=== PATIENT | female | born 1950 | race Hispanic/Latino ===

== ENCOUNTER 2019-01-09 14:23 | Emergency (ER) | payer MEDICARE, OTHER ==
[~2019-01-09] VITALS: Ht 165.1 cm; Wt 86.2 kg
--- OUTSIDE RECORDS SUMMARY | 2019-01-09 14:25 | XMS REPORT ---
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 Allergies, Adverse Reactions, Alerts This patient has no known allergies or adverse reactions. Medications This patient has no known medications. Results Test Description Test Time Test Comments Text Results Atomic Results Result Comments CT BRAIN WO [place] [address] Patient Name: TASHIA PENA MR #: [id number] : 1950 Age/Sex: 66/F Req #: [id number] Adm Physician: Ordered by: CORNELIUS HUNTLEY MD Report #: [id number] Location: ER Room/Bed: Procedure: [id number] CT/CT BRAIN WO Exam Date: Exam Time: REPORT STATUS: Signed EXAMINATION: Head CT without contrast. HISTORY:Headache and dizziness. COMPARISON:None. TECHNIQUE: Multidetector axial images were obtained from the foramen magnum to the vertex without contrast. The images were reconstructed using brain and bone algorithms. Thin section brain images were reformatted into coronal and sagittal planes. Intravenous contrast: None IMAGE QUALITY: Acceptable. FINDINGS: Skull/scalp: No abnormality. Parenchyma: No abnormal density. No acute hemorrhage, mass or acute major vascular territorial infarct. Arteries: No density suggestive of thrombosis. Dural sinuses: No abnormal density suggestive of thrombosis. Ventricles: No hydrocephalus or displacement. Extra- axial spaces: Incidental 4 mm well-circumscribed hypodense lesion in the anterior interhemispheric fissure possibly represents small lipoma. Brain volume: Normal for age. Craniocervical junction: No mass, Chiari malformation, or basilar invagination. Sella: No mass. P aranasal/mastoid sinuses: Imaged portions unremarkable. IMPRESSION: No acute intracranial abnormality. Signed by: Dr. Lara Sumner M.D. on 02/15/2017 1:44 AM Dictated By: LARA SUMNER MD 3 Transcribed By: NATE on 02/15/17143 COPY TO: CORNELIUS HUNTLEY MD
[2019-01-09] MEDS ORDERED: TRAMADOL HCL 50 MG TAB PO ONE (15:00)
[2019-01-09 16:20] LABS: BILIRUBIN,URINE NEGATIVE (NEGATIVE); CLARITY,URINE CLEAR (CLEAR); COLOR,URINE YELLOW (YELLOW); KETONES,URINE NEGATIVE (NEGATIVE); LEUKOCYTE ESTERASE ,URINE MODERATE (NEGATIVE); NITRITE,URINE NEGATIVE (NEGATIVE); PROTEIN,URINE DIPSTICK NEGATIVE (NEGATIVE); URINE UROBILINOGEN 0.2 mg/dL (0.2 - 1)
--- NOTE | 2019-01-09 16:20 | Diagnostic Imaging Report ---
Chest radiograph, 2 views Clinical indications: Pain Comparison: None Findings: The heart is within normal limits in size. The aorta has a tortuous appearance. The mediastinal and hilar contours are unremarkable. No focal consolidation, sizable pleural effusion, or pneumothorax. Surgical clips project over the left axilla. Impression: No radiographic evidence of an acute cardiopulmonary process. Signed by: Jeramy Orellana MD on 01/09/2019 4:17 PM
[2019-01-09 16:42] LABS: BACTERIA,URINE RARE /HPF; EPITHELIAL CELLS,URINE MODERATE /LPF; RBC,URINE 0-5 /HPF (0-5); RENAL EPITHELIAL CELLS,URINE RARE; TRANSITIONAL EPI CELLS,URINE RARE
--- NOTE | 2019-01-09 18:43 | NUR ---
PT REQUESTED ANGUILLAN. MANUFACTURING SUPERVISOR COMPUTER USED PER POLICY AND PT DISCHARGED. [id number]
== END 2019-01-09 18:43 | disposition home or self-care (01) ==
LOC: ER 14:23
DX: J20.9 Acute bronchitis, unspecified (principal); N39.0 Urinary tract infection, site not specified; I10 Essential (primary) hypertension; E11.9 Type 2 diabetes mellitus without complications; E78.5 Hyperlipidemia, unspecified; Z85.3 Personal history of malignant neoplasm of breast
CPT/HCPCS: 71046; 81001; 87086; 93005; 99283

== ENCOUNTER 2022-02-14 16:00 | Outpatient (RCR) | payer OTHER, MEDICARE | END 2022-02-16 | LOC: PT 16:00 | PROVIDERS: ATTEND Physician Assistant | DX: M75.82 Other shoulder lesions, left shoulder (principal) ==

== ENCOUNTER 2022-02-21 09:00 | Outpatient (RCR) | payer OTHER, MEDICARE ==
[2022-03-20] MEDS ORDERED: PRAMIPEXOLE D0.25 MG PO (14:36)
[2022-03-20] MEDS ORDERED: LEVOCETIRIZINE D5 MG PO (14:36)
[2022-03-20] MEDS ORDERED: NEURONTIN300 MG PO (14:36)
[2022-03-20] MEDS ORDERED: LOSARTAN POTASS25 MG PO (14:36)
[2022-03-20] MEDS ORDERED: CELEXA20 MG PO (14:36)
[2022-03-20] MEDS ORDERED: OMEPRAZOLE20 MG PO (14:36)
[2022-03-20] MEDS ORDERED: METFORMIN HCL500 MG PO (14:36)
[2022-03-20] MEDS ORDERED: ARICEPT5 MG PO (14:36)
[2022-03-20] MEDS ORDERED: CRESTOR10 MG PO (14:36)
[2022-03-20] MEDS ORDERED: TIZANIDINE HCL4 MG PO (14:36)
[2022-03-20] MEDS ORDERED: METOPROLOL TAR100 MG PO (14:36)
== END 2022-03-19 ==
LOC: PT 09:00
PROVIDERS: ATTEND Physician Assistant
DX: M75.82 Other shoulder lesions, left shoulder (principal)

== ENCOUNTER 2022-03-20 06:05 | Inpatient (IN) | payer MEDICARE ==
[~2022-03-20] VITALS: Ht 154.9 cm; Wt 84.4 kg
[2022-03-20 06:33] LABS: BASOPHILS % 0.7 % (0.0-1.0); EOSINOPHILS # (AUTO) 0.2 (0.0-0.4); EOSINOPHILS % 2.9 % (0.0-6.0); HEMATOCRIT 29.4 % (34.2-44.1); HEMOGLOBIN 10.2 g/dL (12.0-16.0); LYMPHOCYTES # (AUTO) 1.7 (1.0-3.2); LYMPHOCYTES % 29.2 % (18.0-39.1); MEAN CORPUSCULAR HEMOGLOBIN 32.8 pg (28-32); MEAN CORPUSCULAR HGB CONC 34.7 g/dL (31-35); MEAN CORPUSCULAR VOLUME 94.5 fL (81-99); MONOCYTES # (AUTO) 0.4 (0.2-0.8); MONOCYTES % 6.7 % (4.4-11.3); NEUTROPHILS # (AUTO) 3.5 (2.1-6.9); NEUTROPHILS % 60.2 % (38.7-80.0); PLATELET COUNT 243 x10e3/uL (140-360); RED BLOOD COUNT 3.11 x10e6/uL (3.6-5.1); RED CELL DISTRIBUTION WIDTH 13.9 % (11.7-14.4)
[2022-03-20 06:53] LABS: ALBUMIN 3.7 g/dL (3.5-5.0); ALBUMIN/GLOBULIN RATIO 1.2 (0.8-2.0); ANION GAP 13.8 mmol/L (8-16); CALCIUM 8.9 mg/dL (8.4-10.2); CREATININE, SERUM 0.77 mg/dL (0.57-1.11)
[2022-03-20 06:59] LABS: POTASSIUM 2.8 mmol/L (3.5-5.1)
[2022-03-20] MEDS ORDERED: POTASSIUM CHLORIDE 20 MEQ TAB CR PO STA (06:59)
[2022-03-20] MEDS ORDERED: ASPIRIN 325 MG TAB PO ONE (07:00)
[2022-03-20] MEDS ORDERED: NITROGLYCERIN 0.4 MG SUBL SL PRN (07:00)
[2022-03-20] MEDS ORDERED: POTASSIUM CHLORIDE 20MEQ/100ML 100 ML IV ONE (07:00)
[2022-03-20] MEDS ORDERED: ENOXAPARIN INJ 80 MG/0.8 ML SYR SC STA (07:03)
[2022-03-20 07:12] LABS: INR 0.82; PROTHROMBIN TIME 12.1 seconds (11.9-14.5)
[2022-03-20] MEDS ORDERED: ONDANSETRON HCL INJ 2MG/ML 2ML 2 MG/ML VIAL IV PRN (07:15)
[2022-03-20] MEDS ORDERED: ASPIRIN 81 MG CHEW TAB PO ONE (07:15)
[2022-03-20] MEDS ORDERED: Morphine 4mg INJECTION 4 MG/ML INJ IV PRN (07:15)
[2022-03-20] MEDS ORDERED: ENOXAPARIN INJ 80 MG/0.8 ML SYR SC ONE (07:31)
[2022-03-20] MEDS ORDERED: SODIUM CHLORIDE 0.9% 1000ML 1,000 ML ONE ×2 (07:33→17:57)
[2022-03-20 09:39] LABS: CHOL/HDL RATIO 1.9 (3.0-3.6)
[2022-03-20 09:59] LABS: THYROID STIMULATING HORMONE 2.22 uIU/mL (0.350-4.940)
[2022-03-20] MEDS ORDERED: ALBUTEROL/IPRATROPIUM 3 ML NEB NEB PRN (10:00)
[2022-03-20] MEDS: METOPROLOL SUCCINATE 25 MG TAB XL PO SCH (10:15)
[2022-03-20] MEDS: OSELTAMIVIR PHOSPHATE 75 MG CAP PO SCH ×2 (10:16→15:46)
[2022-03-20] MEDS ORDERED: IOPAMIDOL 370 MG/ML 100 ML INFUS..BTL INJ ONE ×2 (11:18→17:57)
[2022-03-20] MEDS ORDERED: TIZANIDINE HCL4 MG PO (14:36)
[2022-03-20] MEDS ORDERED: CRESTOR10 MG PO (14:36)
[2022-03-20] MEDS ORDERED: LOSARTAN POTASS25 MG PO (14:36)
[2022-03-20] MEDS ORDERED: CELEXA20 MG PO (14:36)
[2022-03-20] MEDS ORDERED: NEURONTIN300 MG PO (14:36)
[2022-03-20] MEDS ORDERED: PRAMIPEXOLE D0.25 MG PO (14:36)
[2022-03-20] MEDS ORDERED: OMEPRAZOLE20 MG PO (14:36)
[2022-03-20] MEDS ORDERED: METFORMIN HCL500 MG PO (14:36)
[2022-03-20] MEDS ORDERED: METOPROLOL TAR100 MG PO (14:36)
[2022-03-20] MEDS ORDERED: ARICEPT5 MG PO (14:36)
[2022-03-20] MEDS ORDERED: LEVOCETIRIZINE D5 MG PO (14:36)
[2022-03-20 14:45] VITALS: BP 175/80
[2022-03-20 15:27] VITALS: BP 175/80
[2022-03-20 15:36] VITALS: BP 175/80
[2022-03-20] MEDS: LOSARTAN POTASSIUM 100 MG TAB PO SCH (15:46)
[2022-03-20 15:55] LABS: ANION GAP 12.5 mmol/L (8-16); CALCIUM 8.8 mg/dL (8.4-10.2); CREATININE, SERUM 0.68 mg/dL (0.57-1.11); POTASSIUM 3.5 mmol/L (3.5-5.1)
[2022-03-20 16:24] LABS: CREATINE KINASE MB 36.5 ng/mL (0-5.0)
[2022-03-20] MEDS ORDERED: HEPARIN SOD/SOD CHLORIDE 2,000 ML ONE (17:57)
[2022-03-20] MEDS ORDERED: HEPARIN SOD (PORCINE) 1000 UNIT/ML 30ML ONE (17:57)
[2022-03-20] MEDS ORDERED: LIDOCAINE HCL 2% LOCAL INJ 5 ML SDV VIAL INJ ONE (17:58)
[2022-03-20] MEDS ORDERED: LIDOCAINE 1% 10 ML MULTIDOSE VIAL IJ ONE (17:58)
[2022-03-20] MEDS ORDERED: VERAPAMIL HCL 2.5 MG/ML 2 ML VIAL ONE (17:59)
[2022-03-20] MEDS ORDERED: FENTANYL CITRATE/PF 100MCG/2 ML INJ ONE (17:59)
[2022-03-20] MEDS ORDERED: MIDAZOLAM HCL 2 MG/2 ML VIAL ONE (17:59)
[2022-03-20 20:00] VITALS: BP 117/65
[2022-03-20] MEDS: ENOXAPARIN SODIUM INJ 100 MG/ML SYR SC SCH (23:16)
[2022-03-21] VITALS (8 sets, daily range): BP systolic 96–152; BP diastolic 54–82
[2022-03-21 00:34] LABS: CREATINE KINASE MB 20.4 ng/mL (0-5.0)
[2022-03-21 06:12] LABS: BASOPHILS % 0.5 % (0.0-1.0); EOSINOPHILS # (AUTO) 0.2 (0.0-0.4); EOSINOPHILS % 2.7 % (0.0-6.0); HEMATOCRIT 30.6 % (34.2-44.1); HEMOGLOBIN 9.9 g/dL (12.0-16.0); LYMPHOCYTES # (AUTO) 1.4 (1.0-3.2); LYMPHOCYTES % 23.9 % (18.0-39.1); MEAN CORPUSCULAR HEMOGLOBIN 29.8 pg (28-32); MEAN CORPUSCULAR HGB CONC 32.4 g/dL (31-35); MEAN CORPUSCULAR VOLUME 92.2 fL (81-99); MONOCYTES # (AUTO) 0.5 (0.2-0.8); MONOCYTES % 9.6 % (4.4-11.3); NEUTROPHILS # (AUTO) 3.6 (2.1-6.9); NEUTROPHILS % 63.1 % (38.7-80.0); PLATELET COUNT 288 x10e3/uL (140-360); RED BLOOD COUNT 3.32 x10e6/uL (3.6-5.1); RED CELL DISTRIBUTION WIDTH 13.7 % (11.7-14.4)
[2022-03-21 06:37] LABS: ANION GAP 12.5 mmol/L (8-16); CALCIUM 8.9 mg/dL (8.4-10.2); CREATININE, SERUM 0.78 mg/dL (0.57-1.11); POTASSIUM 3.5 mmol/L (3.5-5.1)
[2022-03-21 06:52] LABS: MAGNESIUM 1.8 MG/DL (1.3-2.1); PHOSPHORUS 3.8 MG/DL (2.3-4.7)
[2022-03-21 07:12] LABS: THYROID STIMULATING HORMONE 2.196 uIU/mL (0.350-4.940)
[2022-03-21 08:13] LABS: CREATINE KINASE MB 15.9 ng/mL (0-5.0)
[2022-03-21] MEDS: ASPIRIN 81 MG CHEW TAB PO SCH (08:27)
[2022-03-21] MEDS: ENOXAPARIN SODIUM INJ 100 MG/ML SYR SC SCH (08:27)
[2022-03-21] MEDS: METOPROLOL SUCCINATE 25 MG TAB XL PO SCH (08:28)
[2022-03-21] MEDS: OSELTAMIVIR PHOSPHATE 75 MG CAP PO SCH ×2 (08:29→17:20)
[2022-03-21] MEDS: LOSARTAN POTASSIUM 100 MG TAB PO SCH (08:29)
[2022-03-21] MEDS ORDERED: ONDANSETRON HCL 4 MG ORAL DISINTEGRATING TAB PO PRN (11:45)
[2022-03-22 00:34] VITALS: BP 123/89
[2022-03-22 02:58] VITALS: BP 123/89
[2022-03-22 05:25] VITALS: BP 170/95
[2022-03-22 08:00] VITALS: BP 139/84
[2022-03-22 08:44] VITALS: BP 139/84
[2022-03-22] MEDS: OSELTAMIVIR PHOSPHATE 75 MG CAP PO SCH (09:11)
[2022-03-22] MEDS: ASPIRIN 81 MG CHEW TAB PO SCH (09:12)
[2022-03-22] MEDS: LOSARTAN POTASSIUM 100 MG TAB PO SCH (09:12)
[2022-03-22] MEDS: METOPROLOL SUCCINATE 25 MG TAB XL PO SCH (09:12)
== END 2022-03-22 11:41 | disposition home or self-care (01) | DRG 193 ==
LOC: ER 06:12 → ERHOLD 07:13 → MED/SURG3 13:41
PROVIDERS: ADMIT Internal Medicine; ATTEND Internal Medicine
PROC: 4A023N7 Measurement of Cardiac Sampling and Pressure, Left Heart, Percutaneous Approach (ICD-10-PCS; principal; 2022-03-20)
PROC: B2111ZZ Fluoroscopy of Multiple Coronary Arteries using Low Osmolar Contrast (ICD-10-PCS; 2022-03-20)
PROC: B2151ZZ Fluoroscopy of Left Heart using Low Osmolar Contrast (ICD-10-PCS; 2022-03-20)
PROC: B3101ZZ Fluoroscopy of Thoracic Aorta using Low Osmolar Contrast (ICD-10-PCS; 2022-03-20)
DX: J10.1 Influenza due to other identified influenza virus with other respiratory manifestations (principal); I21.A1 Myocardial infarction type 2; E11.9 Type 2 diabetes mellitus without complications; E11.69 Type 2 diabetes mellitus with other specified complication; E78.5 Hyperlipidemia, unspecified; E66.09 Other obesity due to excess calories; Z68.35 Body mass index [BMI] 35.0-35.9, adult; E87.6 Hypokalemia; I25.10 Atherosclerotic heart disease of native coronary artery without angina pectoris
CPT/HCPCS: 36415; 71045; 71260; 76937; 80048; 80053; 80061; 82550; 82553; 82948; 83036; 83690; 83735; 84100; 84443; 84484; 85025; 85379; 85610; 87400; 93005; 93458; 94799; 99152; 99284; C1769; C1887; J1644; J1650; J2001; J2250; J2270; J3010; J3480; J7030; Q9967

== ENCOUNTER → 2022-08-07 | Day surgery (SDC) | payer MEDICARE ==
[~2022-08-07] MED LIST: ALBUTEROL SULFATE HFA 8GM INHALATION AEROSOL INH ONE; ARICEPT5 MG PO; CELEXA20 MG PO; CRESTOR10 MG PO; FENTANYL CITRATE/PF 100MCG/2 ML INJ ONE; LACTATED RINGER'S 1,000 ML ONE; LEVOCETIRIZINE D5 MG PO; LOSARTAN POTASS25 MG PO; METFORMIN HCL500 MG PO; METOPROLOL TAR100 MG PO; MIDAZOLAM HCL 2 MG/2 ML VIAL ONE; NEURONTIN300 MG PO; OMEPRAZOLE20 MG PO; OR PHACO EYE KIT ONE; PRAMIPEXOLE D0.25 MG PO; PREOP PHACO EYE KIT ONE; TIZANIDINE HCL4 MG PO
[2022-08-07 11:25] VITALS: BP 125/80
== END | disposition home or self-care (01) ==
LOC: OR 08:30
PROVIDERS: ATTEND Ophthalmology
DX: H25.12 Age-related nuclear cataract, left eye (principal); E11.9 Type 2 diabetes mellitus without complications; I10 Essential (primary) hypertension; E78.5 Hyperlipidemia, unspecified; I73.9 Peripheral vascular disease, unspecified; Z79.84 Long term (current) use of oral hypoglycemic drugs; Z79.899 Other long term (current) drug therapy
CPT/HCPCS: 36415; 66984; 82948; J2250; J3010; J7121; V2632

== ENCOUNTER → 2022-08-21 | Day surgery (SDC) | payer MEDICARE ==
[~2022-08-21] MED LIST changes: -ALBUTEROL SULFATE HFA 8GM INHALATION AEROSOL INH ONE; +HYDRALAZINE HCL 20 MG/ML VIAL ONE; -LACTATED RINGER'S 1,000 ML ONE; -PREOP PHACO EYE KIT ONE
[2022-08-21 14:00] VITALS: BP 138/73
== END | disposition home or self-care (01) ==
LOC: OR 10:38
PROVIDERS: ATTEND Ophthalmology
DX: H25.11 Age-related nuclear cataract, right eye (principal); D50.9 Iron deficiency anemia, unspecified; L60.2 Onychogryphosis; E11.42 Type 2 diabetes mellitus with diabetic polyneuropathy; I10 Essential (primary) hypertension; E78.00 Pure hypercholesterolemia, unspecified; F41.9 Anxiety disorder, unspecified; Z79.84 Long term (current) use of oral hypoglycemic drugs; Z79.82 Long term (current) use of aspirin; Z79.899 Other long term (current) drug therapy; Z68.35 Body mass index [BMI] 35.0-35.9, adult
CPT/HCPCS: 36415; 66984; 82948; J0360; J2250; J3010; V2632